=== PATIENT | male | born 1980 | race Caucasian/White ===

== ENCOUNTER 2017-04-06 12:22 | Day surgery (SDC) | payer OTHER ==
[2017-04-04 14:39] VITALS: BMI 28.8
[2017-04-06] MEDS ORDERED: MIDAZOLAM HCL 2 MG/2 ML SINGLE DOSE VIAL ONE (13:49)
[2017-04-06] MEDS ORDERED: PROPOFOL 20 ML ONE (13:51)
[2017-04-06] MEDS ORDERED: ROCURONIUM BROMIDE 50 MG/5 ML VIAL ONE (13:52)
[2017-04-06] MEDS ORDERED: DEXAMETHASONE SOD PHOSPHATE 4 MG/1 ML VIAL ONE (14:12)
[2017-04-06] MEDS ORDERED: LIDOCAINE 1%/EPI 1:100000 (50 ML MULTI DOSE VIAL) INF ONE (14:16)
[2017-04-06] MEDS ORDERED: COCAINE HCL 4% TOPICAL SOLUTION 4 ML BOTTLE TP ONE (14:27)
[2017-04-06] MEDS ORDERED: GLYCOPYRROLATE 0.2 MG/1 ML VIAL ONE (14:31)
[2017-04-06] MEDS ORDERED: NEOSTIGMINE METHYLSULFATE 0.5 MG/ML - 10 ML MDV ONE (14:31)
[2017-04-06] MEDS ORDERED: KETOROLAC TROMETHAMINE 30 MG/1 ML VIAL ONE (14:41)
[2017-04-06] MEDS ORDERED: morphine CARPU-JECT 2 MG/1 ML DISP.SYRIN IVPUSH PRN (14:50)
[2017-04-06] MEDS ORDERED: ACETAMINOPHEN 650 MG/20.3 ML ORAL SOLUTION (CUPS) PO PRN (14:50)
[2017-04-06] MEDS ORDERED: ACETAMINOPHEN 325 MG TABLET (FP) PO PRN (14:50)
[2017-04-06] MEDS ORDERED: ONDANSETRON 4 MG/2 ML VIAL IVPUSH PRN (14:53)
[2017-04-06] MEDS ORDERED: oxyCODONE HCL 5 MG TABLET PO PRN ×2 (14:53→15:05)
[2017-04-06] MEDS ORDERED: ACETAMINOPHEN 1000 MG/100 ML VIAL (NON FORMULARY) IVPB PRN (14:54)
[2017-04-06] MEDS ORDERED: LACTATED RINGERS SOLUTION 1,000 ML IV SCH (15:00)
[2017-04-06] MEDS ORDERED: ONDANSETRON 4 MG/2 ML VIAL ONE (15:31)
[2017-04-06 16:51] VITALS: TEMP 98.7
[2017-04-06] MEDS ORDERED: oxyCODONE HCL 5 MG TABLET ONE (17:07)
[2017-04-06 19:12] VITALS: BP 140/87; PULSE 93
--- NOTE | 2017-04-07 19:23 | OP ---
DATE OF OPERATION: 04/06/2017 PREOPERATIVE DIAGNOSIS: Obstructive sleep apnea and tonsillar hypertrophy and turbinate hypertrophy. POSTOPERATIVE DIAGNOSIS: Obstructive sleep apnea and tonsillar hypertrophy and turbinate hypertrophy. PROCEDURE: Tonsillectomy and submucosal resection of bilateral inferior turbinates. INDICATION: The patient is a 36-year-old male who has a history of chronic severe snoring , and frequent arousals, as was as chronic nasal congestion. He had a previous sleep study which did fit in with severe sleep apnea with evidence of O2 desaturations. He was unable to tolerate CPAP at all. On physical exam, he was noted to have 4+ tonsils as well as turbinate hypertrophy with a normal palate and tongue base. He is now indicated for formal surgery. The patient understood the risks, benefits, and alternatives and did wish to proceed. He understood. ANESTHESIA: General endotracheal intubation. DESCRIPTION OF PROCEDURE: Patient was brought to the operating room and placed in supine position. After successful induction of anesthesia and placement of an endotracheal tube, a shoulder roll was placed, and the patient's face was prepped and draped in the usual sterile fashion. McIvor mouth gag was placed into the oral cavity and retracted open to expose the pharynx, which was suspended on the Ugalde stand. Tonsils were noted to be 4+ bilaterally and markedly cryptic. The tonsillar fossa was injected with 6 mL of 1% lidocaine with 1:100,000 epinephrine. After which, the Coblation device with the EVac Xtra handpiece was used to perform a subcapsular removal of bilateral tonsils, preserving anterior and posterior tonsillar pillar mucosa. Bleeding was controlled using the bipolar aspect of the Coblation device. No active bleeding was noted. Catheter and mouth gag were removed with no evidence of injury to dentition or mucosa. Attention was then brought to the nasal cavity. Pledgets soaked in 4% cocaine were placed in the bilateral nasal cavities for vasoconstriction. An additional 4 mL of 1% lidocaine with 1:100,000 epinephrine were injected into bilateral inferior turbinate mucosa. A stab incision was made anteriorly. A submucosal tunnel was created. Microdebrider with the inferior turbinate handpiece was used to perform submucosal removal of tissue anteriorly and superiorly, down to the level of the turbinate periosteum. Inferior turbinates were then outfractured. No active bleeding was noted. No packing was placed. The patient tolerated the procedure well, was extubated, and brought to recovery in stable condition. EBL was 30 mL. Specimens were bilateral tonsils. Rita [id number]
--- NOTE | 2017-04-10 13:14 | PATH ---
Surgical Pathology Report Patient Name: SABRINA GREGG Med. Rec. #: [id number] /Age/Gender: 1980 (Age: 36) / M Account: [id number] Location: [facility] SURGICAL Taken: 04/06/2017 Received: 04/09/2017 Reported: 04/10/2017 Physicians: Paras Saldana M.D. Specimen(s) Received A: RIGHT TONSIL B: LEFT TONSIL Clinical History Hypertrophic tonsils and turbinates Final Diagnosis A. 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 B. TONSIL, LEFT, TONSILLECTOMY: BENIGN TONSIL WITH REACTIVE FOLLICULAR LYMPHOID HYPERPLASIA AND COLONIZATION WITH MICROORGANISMS MORPHOLOGICALLY CONSISTENT WITH ACTINOMYCES SPECIES. Electronically Signed Mitesh Ramírez M.D. Gross Description A. Received in formalin labeled "right tonsil" is a 3.1 x 2.3 x 1.6 cm ovoid portion of soft tissue, consistent with a tonsil. The outer surface is cifuentes, convoluted and varies from smooth to cauterized. Sectioning reveals homogeneous cifuentes, smooth parenchyma with cryptic architecture. No discrete lesions are identified. A surgical sales representative section is submitted in one cassette. B. Received in formalin labeled "left tonsil" is a 3.0 x 2.5 x 2.2 cm ovoid portion of soft tissue, consistent with a tonsil. The outer surface is cifuentes, convoluted and varies from smooth to cauterized. Sectioning reveals homogeneous cifuentes, smooth parenchyma with cryptic architecture. No discrete lesions are identified. A surgical sales representative section is submitted in one cassette. 04/09/2017 [facility]04/09/2017
== END 2017-04-06 18:10 | disposition home or self-care (01) ==
LOC: JASU-SURG 12:22
PROVIDERS: ATTEND Otolaryngology
PROC: 0CTPXZZ Resection of Tonsils, External Approach (ICD-10-PCS; principal; 2017-04-06 13:00)
PROC: 09TL7ZZ Resection of Nasal Turbinate, Via Natural or Artificial Opening (ICD-10-PCS; 2017-04-06 13:00)
DX: J35.1 Hypertrophy of tonsils (principal); J34.3 Hypertrophy of nasal turbinates; G47.33 Obstructive sleep apnea (adult) (pediatric)
CPT/HCPCS: 88304-TC; 94760